=== PATIENT | female | born 1965 | race Caucasian/White ===

== ENCOUNTER → 2016-04-08 | Outpatient (CLI) | payer OTHER ==
--- NOTE | 2016-04-08 13:52 | MA ---
Diagnostic Digital Mammogram Left Breast With iCAD Analysis Reason for examination: Evaluate possible developing nodules in the upper outer left breast noted on the screening study March 04, 2016. Technique: Oblique and craniocaudal spot compression views are obtained. Also, a true lateral is perf ormed. The examination is processed by the iCAD computer-aided detection system. Findings: Nodular asymmetries persist in the upper left breast and are not as well identified on the craniocaudal view but presumably are in the outer posterior aspect. No suspicious microcalcifications are seen.. Impression: Persistent left breast nodularity requires further evaluation, BI-RADS 0. Recommendation: Targeted left breast ultrasound which will be subsequently performed today. A verbal report was given to the patient. [facility] with send a result letter.
--- NOTE | 2016-04-08 14:34 | US ---
Left Breast Ultrasound History: Evaluate asymmetry is noted in the upper outer left breast on diagnostic mammography perform ed earlier today. Technique: Longitudinal and transverse images were obtained utilizing a 15 MHz transducer. Study is interpreted in conjunction with mammographic studies performed earlier today and dating back to September 2009. Findings: No palpable abnormality is identified. Sonographic interrogation of the upper outer left br east demonstrates prominent fibroglandular elements. No solid or cystic mass is seen. The sonographic appearance would correlate with asymmetric glandular elements. This appearance of the upper outer br east does date back to the older studies.. Impression: Benign findings when considering mammographic and sonographic assessment, BI-RADS 2. Recommendation: Resume routine mammographic screening in one year as long as physical examination is negative.. Findings and follow-up recommendations were reviewed with the patient in detail. [facility] will send a result letter to the patient.
== END ==
LOC: BMCIMAGING 13:19
DX: R92.2 Inconclusive mammogram (principal)
CPT/HCPCS: G0206

== ENCOUNTER → 2018-09-08 | Outpatient (CLI) | payer OTHER | LOC: BMCIMAGING 13:35 ==

== ENCOUNTER → 2018-09-12 | Outpatient (CLI) | payer OTHER | LOC: BMCIMAGING 13:57 ==